=== PATIENT | male | born 1940 | race Caucasian/White ===

== ENCOUNTER 2018-06-07 09:14 | Inpatient (IN) | payer MEDICAID, MEDICARE ==
[~2018-06-07] VITALS: Ht 167.6 cm; Wt 91.6 kg
[~2018-06-07 09:14] MED LIST: AMLO10TA80 PO; ASPI-1159 PO; ATOR-2 PO; CALC-816 PO; CANA100T PO; CARV12.545 PO; CLOP75TA33 PO; FURO40TA5 PO; GABA-531 PO; INSHUMSS SUBCUT; NEOM28OI21 TP; [UNRECOGNIZED DRUG - OTHER]
[2018-06-07] MEDS ORDERED: ONDANSETRON HCL 4MG/2ML INJ IV STA (09:46)
[2018-06-07] MEDS ORDERED: MORPHINE SULFATE 4 MG/ML CPJ (NOT FOR IM USE) IV STA (09:46)
[2018-06-07] MEDS ORDERED: NITROGLYCERIN OINT 1GM/INCH UDPKT TD ONE (10:00)
[2018-06-07] MEDS ORDERED: ASPIRIN 81MG TABLET PO ONE (10:00)
[2018-06-07] MEDS ORDERED: FUROSEMIDE 40MG/4ML VIAL IV ONE (10:00)
[2018-06-07 10:13] LABS: BASOPHILS % 1.9 % (0.0-2.0); HEMATOCRIT. 35.4 % (42.0-52.0); HEMOGLOBIN. 12.2 g/dL (14.0-18.0); MEAN CORPUSCULAR HEMOGLOBIN 29.7 pg (28.0-32.0); MEAN CORPUSCULAR VOLUME 86.2 fL (80.0-94.0); MEAN PLATELET VOLUME 8.8 fl (7.4-10.4); MONOCYTES % 7.9 % (2.0-8.0); NEUTROPHILS % 54.2 % (40.0-76.0); PLATELET 214 x1000/uL (130-400); RED CELL DISTRIBUTION WIDTH 13.7 % (11.6-14.6)
[2018-06-07 10:22] LABS: PARTIAL THROMBOPLASTIN TIME 26.4 sec (23.4-31.0); PROTHROMBIN TIME 10.2 sec (9.1-11.1)
[2018-06-07 10:24] LABS: CHLORIDE 105 mEq/L (98-107)
[2018-06-07 10:36] LABS: CLARITY URINE CLEAR (CLEAR); COLOR URINE YELLOW (YELLOW); KETONES URINE NEGATIVE (NEGATIVE); LEUKOCYTE ESTERASE URINE NEGATIVE (NEGATIVE); NITRITE URINE NEGATIVE (NEGATIVE); OCCULT BLOOD URINE TRACE (NEGATIVE); PROTEIN URINE 4+ (NEGATIVE); SPECIFIC GRAVITY URINE 1.018 (1.005-1.030); UROBILINOGEN URINE 0.2 E.U./dL (0.2-1.0)
[2018-06-07 10:37] LABS: CREATINE KINASE 98 IU/L (39-308)
[2018-06-07 10:40] LABS: CREATINE KINASE MB FRACTION 1.4 ng/mL (0.5-3.6)
[2018-06-07] MEDS ORDERED: ONDANSETRON HCL 4MG/2ML INJ IV PRN (12:30)
[2018-06-07] MEDS: IPRATROPIUM/ALBUTEROL 0.5-3(2.5)MG/3ML NEB INH SCH ×2 (12:30→22:31)
[2018-06-07] MEDS ORDERED: DOCUSATE SODIUM 100MG CAPSULE PO PRN (12:30)
[2018-06-07] MEDS ORDERED: ENOXAPARIN 40MG/0.4ML SYR SUBCUT SCH (12:30)
[2018-06-07] MEDS ORDERED: ACETAMINOPHEN 325MG TABLET PO PRN (12:30)
[2018-06-07] MEDS ORDERED: CLONIDINE 0.1MG TABLET PO PRN (12:30)
[2018-06-07] MEDS: GABAPENTIN 300MG CAPSULE PO SCH ×2 (14:00→21:28)
[2018-06-07 18:18] VITALS: BP 156/74
[2018-06-07] MEDS ORDERED: CARVEDILOL 12.5MG TABLET PO SCH (18:30)
[2018-06-07] MEDS ORDERED: FUROSEMIDE 40MG/4ML VIAL IV SCH ×2 (18:45→20:00)
[2018-06-07 20:00] VITALS: BP_SYST 128; BP_SYST 138; BP_SYST 145; BP_SYST 147; BP_DIAS 40; BP_DIAS 51; BP_DIAS 62; BP_DIAS 66
[2018-06-07 21:00] VITALS: BP 128/40
[2018-06-07] MEDS: CARVEDILOL 12.5MG TABLET PO SCH (21:28)
[2018-06-08] VITALS (7 sets, daily range): BP systolic 134–152; BP diastolic 61–72
[2018-06-08] MEDS: IPRATROPIUM/ALBUTEROL 0.5-3(2.5)MG/3ML NEB INH SCH ×4 (02:17→21:30)
[2018-06-08] MEDS: GABAPENTIN 300MG CAPSULE PO SCH ×3 (05:58→21:46)
[2018-06-08 07:05] LABS: BASOPHILS % 1.4 % (0.0-2.0); EOSINOPHILS % 8.5 % (0.0-5.0); HEMATOCRIT. 32.7 % (42.0-52.0); HEMOGLOBIN. 11.3 g/dL (14.0-18.0); LYMPHOCYTES % 31.4 % (20.0-50.0); MEAN CORPUSCULAR HEMOGLOBIN 29.6 pg (28.0-32.0); MEAN CORPUSCULAR VOLUME 85.8 fL (80.0-94.0); MEAN PLATELET VOLUME 8.9 fl (7.4-10.4); NEUTROPHILS % 49.7 % (40.0-76.0); PLATELET 189 x1000/uL (130-400); RED BLOOD CELL COUNT 3.81 mill/uL (4.7-6.1); RED CELL DISTRIBUTION WIDTH 13.7 % (11.6-14.6)
[2018-06-08] MEDS: CARVEDILOL 12.5MG TABLET PO SCH ×2 (07:15→17:35)
[2018-06-08 07:35] LABS: CHLORIDE 104 mEq/L (98-107)
[2018-06-08 07:50] LABS: HDL CHOLESTEROL 42 mg/dL (40-59); LDL CHOLESTEROL 113 mg/dL (5-100)
[2018-06-08] MEDS: CLOPIDOGREL 75MG TABLET PO SCH ×2 (09:00→14:04)
[2018-06-08] MEDS: ASPIRIN 81MG EC TABLET PO SCH ×2 (09:00→14:04)
[2018-06-08] MEDS: AMLODIPINE 10MG TABLET PO SCH ×2 (09:00→14:04)
[2018-06-08] MEDS: CALCIUM CARBONATE/VITAMIN D3 500MG TABLET PO SCH ×2 (09:00→14:04)
[2018-06-08] MEDS: FUROSEMIDE 40MG/4ML VIAL IV SCH ×2 (10:00→14:03)
[2018-06-08] MEDS ORDERED: DEXTROSE 50% WATER 50ML SYRINGE IV PRN (14:45)
[2018-06-08] MEDS: BLOOD SUGAR DIAGNOSTIC STRIP TEST SCH ×2 (16:14→20:35)
[2018-06-08] MEDS: INSULIN LISPRO 100 UNITS/ML SUBCUT SCH ×2 (17:37→20:40)
[2018-06-08] MEDS ORDERED: ATORVASTATIN CALCIUM 40MG TABLET PO SCH (21:00)
[2018-06-09] VITALS: BP 136/59
[2018-06-09] MEDS: IPRATROPIUM/ALBUTEROL 0.5-3(2.5)MG/3ML NEB INH SCH ×3 (03:00→14:59)
[2018-06-09 04:00] VITALS: BP 134/54
[2018-06-09] MEDS: GABAPENTIN 300MG CAPSULE PO SCH ×2 (05:56→13:06)
[2018-06-09] MEDS: BLOOD SUGAR DIAGNOSTIC STRIP TEST SCH ×3 (05:56→16:48)
[2018-06-09 07:15] LABS: BASOPHILS % 1.1 % (0.0-2.0); EOSINOPHILS % 7.3 % (0.0-5.0); HEMATOCRIT. 31.9 % (42.0-52.0); HEMOGLOBIN. 11.2 g/dL (14.0-18.0); LYMPHOCYTES % 35.7 % (20.0-50.0); MEAN CORPUSCULAR VOLUME 85.8 fL (80.0-94.0); MONOCYTES % 9.3 % (2.0-8.0); NEUTROPHILS % 46.6 % (40.0-76.0); PLATELET 198 x1000/uL (130-400); RED BLOOD CELL COUNT 3.71 mill/uL (4.7-6.1); RED CELL DISTRIBUTION WIDTH 13.7 % (11.6-14.6)
[2018-06-09 08:00] VITALS: BP 146/64
[2018-06-09] MEDS ORDERED: REGADENOSON 0.4 MG/5 ML IV ONE ×2 (08:00→09:15)
[2018-06-09] MEDS: FUROSEMIDE 40MG/4ML VIAL IV SCH (08:31)
[2018-06-09] MEDS: CARVEDILOL 12.5MG TABLET PO SCH (08:32)
[2018-06-09] MEDS: AMLODIPINE 10MG TABLET PO SCH (08:32)
[2018-06-09] MEDS: CLOPIDOGREL 75MG TABLET PO SCH (08:32)
[2018-06-09] MEDS: CALCIUM CARBONATE/VITAMIN D3 500MG TABLET PO SCH (08:32)
[2018-06-09] MEDS: ASPIRIN 81MG EC TABLET PO SCH (08:33)
[2018-06-09] MEDS: INSULIN LISPRO 100 UNITS/ML SUBCUT SCH ×2 (08:38→13:07)
[2018-06-09] MEDS ORDERED: INFLUENZA VIRUS VACCINE(AFLURIA) 0.5ML SYR IM ONE (09:00)
[2018-06-09] MEDS ORDERED: PNEUMOCOCCAL 23-VAL P-SAC VAC 0.5 ML IM ONE (09:00)
[2018-06-09 12:00] VITALS: BP 135/63
[2018-06-09 16:00] VITALS: BP 143/63
[2018-06-09 16:58] VITALS: BP 143/63
== END 2018-06-09 17:20 | disposition home or self-care (01) | DRG 205 ==
LOC: ER 10:08 → 5WST 10:21 → EDBEDREQ 10:39 → ENRESERV 16:27
PROVIDERS: ADMIT Internal Medicine Nephrology; ATTEND Internal Medicine Nephrology
PROC: 4A10X4Z Monitoring of Central Nervous Electrical Activity, External Approach (ICD-10-PCS; principal; 2018-06-08)
DX: M94.0 Chondrocostal junction syndrome [Tietze] (principal); I50.33 Acute on chronic diastolic (congestive) heart failure; J96.90 Respiratory failure, unspecified, unspecified whether with hypoxia or hypercapnia; I13.0 Hypertensive heart and chronic kidney disease with heart failure and stage 1 through stage 4 chronic kidney disease, or unspecified chronic kidney disease; E44.0 Moderate protein-calorie malnutrition; N17.9 Acute kidney failure, unspecified; G90.8 Other disorders of autonomic nervous system; D64.9 Anemia, unspecified; E11.22 Type 2 diabetes mellitus with diabetic chronic kidney disease; E11.42 Type 2 diabetes mellitus with diabetic polyneuropathy; E78.00 Pure hypercholesterolemia, unspecified; I25.10 Atherosclerotic heart disease of native coronary artery without angina pectoris; N18.9 Chronic kidney disease, unspecified; I27.20 Pulmonary hypertension, unspecified; Z95.1 Presence of aortocoronary bypass graft; Z82.49 Family history of ischemic heart disease and other diseases of the circulatory system; Z83.3 Family history of diabetes mellitus; Z87.891 Personal history of nicotine dependence; Z79.899 Other long term (current) drug therapy; Z79.02 Long term (current) use of antithrombotics/antiplatelets; Z79.82 Long term (current) use of aspirin; Z68.32 Body mass index [BMI] 32.0-32.9, adult
CPT/HCPCS: 36415; 70544; 70553; 71045; 78452; 78582; 80048; 80061; 82550; 82553; 82962; 83036; 83735; 83880; 84443; 84484; 90686; 90732; 93005; 93017; 93306; 93880; 94640; 96374; 96375; 97162; 97166; 99285; A9500; A9558; G0482; J1815; J1940; J2270; J2405; J2785; J7620

== ENCOUNTER 2018-08-18 14:42 | Inpatient (IN) | payer MEDICARE, MEDICAID ==
[~2018-08-18] VITALS: Ht 170.2 cm; Wt 90.0 kg
[2018-08-18] MEDS ORDERED: NITROGLYCERIN OINT 1GM/INCH UDPKT TD ONE (15:45)
[2018-08-18] MEDS ORDERED: ASPIRIN 81MG TABLET PO ONE (15:45)
[2018-08-18] MEDS ORDERED: FUROSEMIDE 40MG/4ML VIAL IV ONE (15:45)
[2018-08-18 17:08] LABS: BASOPHILS % 1.2 % (0.0-2.0); HEMATOCRIT. 31.7 % (42.0-52.0); HEMOGLOBIN. 10.8 g/dL (14.0-18.0); LYMPHOCYTES % 21.1 % (20.0-50.0); MEAN CORPUSCULAR VOLUME 87.9 fL (80.0-94.0); MEAN PLATELET VOLUME 9.5 fl (7.4-10.4); MONOCYTES % 10.8 % (2.0-8.0); NEUTROPHILS % 63.9 % (40.0-76.0); PLATELET 170 x1000/uL (130-400); RED BLOOD CELL COUNT 3.61 mill/uL (4.7-6.1); RED CELL DISTRIBUTION WIDTH 14.7 % (11.6-14.6)
[2018-08-18 17:10] LABS: CHLORIDE 109 mEq/L (98-107)
[2018-08-18 17:24] LABS: INR 1.1; PARTIAL THROMBOPLASTIN TIME 30.3 sec (23.4-31.0)
[2018-08-18] MEDS ORDERED: ACETAMINOPHEN 325MG TABLET PO PRN (19:00)
[2018-08-18] MEDS ORDERED: DOCUSATE SODIUM 100MG CAPSULE PO PRN (19:00)
[2018-08-18] MEDS ORDERED: ONDANSETRON HCL 4MG/2ML INJ IV PRN (19:00)
[2018-08-18] MEDS ORDERED: IPRATROPIUM/ALBUTEROL 0.5-3(2.5)MG/3ML NEB INH PRN (19:00)
[2018-08-18] MEDS ORDERED: CLONIDINE 0.1MG TABLET PO PRN (19:00)
[2018-08-18] MEDS ORDERED: MAGNESIUM/ALUMINUM HYDROXIDE/SIMETHICONE 30ML UDC PO PRN (19:00)
[2018-08-18 22:00] VITALS: BP 161/77
[2018-08-18] MEDS ORDERED: CARVEDILOL 3.125 MG TABLET PO ONE (22:30)
[2018-08-18] MEDS: ATORVASTATIN CALCIUM 40MG TABLET PO SCH (22:41)
[2018-08-18] MEDS: GABAPENTIN 300MG CAPSULE PO SCH (22:41)
[2018-08-18] MEDS ORDERED: DEXTROSE 50% WATER 50ML SYRINGE IV PRN (22:45)
[2018-08-18 23:08] LABS: CLARITY URINE CLEAR (CLEAR); COLOR URINE YELLOW (YELLOW); KETONES URINE NEGATIVE (NEGATIVE); LEUKOCYTE ESTERASE URINE NEGATIVE (NEGATIVE); NITRITE URINE NEGATIVE (NEGATIVE); OCCULT BLOOD URINE 1+ (NEGATIVE); PH URINE 5.5 (4.5-8.0); PROTEIN URINE 3+ (NEGATIVE); UROBILINOGEN URINE 0.2 E.U./dL (0.2-1.0)
[2018-08-19] VITALS: BP 129/58
[2018-08-19 04:00] VITALS: BP 154/70
[2018-08-19] MEDS: BLOOD SUGAR DIAGNOSTIC STRIP TEST SCH ×4 (06:31→20:08)
[2018-08-19] MEDS: INSULIN LISPRO 100 UNITS/ML SUBCUT SCH ×4 (06:39→20:18)
[2018-08-19 06:52] LABS: BASOPHILS % 1.2 % (0.0-2.0); EOSINOPHILS % 4.6 % (0.0-5.0); LYMPHOCYTES % 27.1 % (20.0-50.0); MEAN CORPUSCULAR HEMOGLOBIN 29.4 pg (28.0-32.0); MEAN CORPUSCULAR VOLUME 87.9 fL (80.0-94.0); MEAN PLATELET VOLUME 9.7 fl (7.4-10.4); MONOCYTES % 12.4 % (2.0-8.0); NEUTROPHILS % 54.7 % (40.0-76.0); PLATELET 169 x1000/uL (130-400); RED BLOOD CELL COUNT 3.41 mill/uL (4.7-6.1); RED CELL DISTRIBUTION WIDTH 14.4 % (11.6-14.6)
[2018-08-19 07:11] LABS: CHLORIDE 111 mEq/L (98-107)
[2018-08-19 08:00] VITALS: BP 145/71
[2018-08-19] MEDS: FUROSEMIDE 40MG/4ML VIAL IVP SCH ×2 (09:05→16:36)
[2018-08-19] MEDS: ENOXAPARIN 30MG/0.3ML SYR SUBCUT SCH ×2 (09:05→20:14)
[2018-08-19] MEDS: CLOPIDOGREL 75MG TABLET PO SCH (09:06)
[2018-08-19] MEDS: ASPIRIN 81MG TABLET PO SCH (09:06)
[2018-08-19] MEDS: AMLODIPINE 10MG TABLET PO SCH (09:06)
[2018-08-19] MEDS ORDERED: TRAMADOL 50MG TABLET PO PRN (09:15)
[2018-08-19 11:53] VITALS: BP 145/63
[2018-08-19 15:58] VITALS: BP 115/64
[2018-08-19 17:44] LABS: HEPATITIS B SURFACE ANTIGEN NEGATIVE
[2018-08-19 18:14] LABS: HEPATITIS A AB IGM NEGATIVE (NEGATIVE)
[2018-08-19 20:00] VITALS: BP_SYST 146; BP_SYST 172; BP_DIAS 53; BP_DIAS 59
[2018-08-19] MEDS: GABAPENTIN 300MG CAPSULE PO SCH (20:14)
[2018-08-19] MEDS: ATORVASTATIN CALCIUM 40MG TABLET PO SCH (20:14)
[2018-08-20] VITALS: BP 153/61
[2018-08-20 04:00] VITALS: BP 128/62
[2018-08-20] MEDS: BLOOD SUGAR DIAGNOSTIC STRIP TEST SCH ×4 (06:18→20:33)
[2018-08-20] MEDS: PANTOPRAZOLE 40MG DR TABLET PO SCH (06:19)
[2018-08-20] MEDS: INSULIN LISPRO 100 UNITS/ML SUBCUT SCH ×4 (06:20→21:58)
[2018-08-20 07:25] LABS: BASOPHILS % 1.2 % (0.0-2.0); EOSINOPHILS % 6.7 % (0.0-5.0); HEMATOCRIT. 30.9 % (42.0-52.0); HEMOGLOBIN. 10.6 g/dL (14.0-18.0); LYMPHOCYTES % 30.4 % (20.0-50.0); MEAN CORPUSCULAR HEMOGLOBIN 29.9 pg (28.0-32.0); MEAN CORPUSCULAR VOLUME 86.9 fL (80.0-94.0); MEAN PLATELET VOLUME 9.8 fl (7.4-10.4); MONOCYTES % 11.4 % (2.0-8.0); NEUTROPHILS % 50.3 % (40.0-76.0); PLATELET 186 x1000/uL (130-400); RED BLOOD CELL COUNT 3.56 mill/uL (4.7-6.1); RED CELL DISTRIBUTION WIDTH 14.1 % (11.6-14.6)
[2018-08-20 08:00] VITALS: BP 155/70
[2018-08-20] MEDS: FUROSEMIDE 40MG/4ML VIAL IVP SCH ×2 (10:02→17:05)
[2018-08-20] MEDS: ASPIRIN 81MG TABLET PO SCH (10:03)
[2018-08-20] MEDS: CLOPIDOGREL 75MG TABLET PO SCH (10:03)
[2018-08-20] MEDS: AMLODIPINE 10MG TABLET PO SCH (10:03)
[2018-08-20] MEDS: ENOXAPARIN 30MG/0.3ML SYR SUBCUT SCH ×2 (10:04→21:58)
[2018-08-20 12:07] VITALS: BP 162/69
[2018-08-20 16:00] VITALS: BP 158/71
[2018-08-20 20:00] VITALS: BP 162/66
[2018-08-20] MEDS: GABAPENTIN 300MG CAPSULE PO SCH (21:57)
[2018-08-20] MEDS: ATORVASTATIN CALCIUM 40MG TABLET PO SCH (21:57)
[2018-08-21] VITALS: BP 142/63
[2018-08-21 04:00] VITALS: BP 146/69
[2018-08-21] MEDS: BLOOD SUGAR DIAGNOSTIC STRIP TEST SCH (05:43)
[2018-08-21] MEDS: PANTOPRAZOLE 40MG DR TABLET PO SCH (05:50)
[2018-08-21] MEDS: INSULIN LISPRO 100 UNITS/ML SUBCUT SCH (06:48)
[2018-08-21 07:19] LABS: BASOPHILS % 0.9 % (0.0-2.0); EOSINOPHILS % 4.8 % (0.0-5.0); HEMATOCRIT. 32.4 % (42.0-52.0); HEMOGLOBIN. 11.1 g/dL (14.0-18.0); LYMPHOCYTES % 25.6 % (20.0-50.0); MEAN CORPUSCULAR HEMOGLOBIN 29.8 pg (28.0-32.0); MEAN PLATELET VOLUME 9.7 fl (7.4-10.4); MONOCYTES % 9.1 % (2.0-8.0); NEUTROPHILS % 59.6 % (40.0-76.0); PLATELET 196 x1000/uL (130-400); RED BLOOD CELL COUNT 3.73 mill/uL (4.7-6.1); RED CELL DISTRIBUTION WIDTH 13.9 % (11.6-14.6)
[2018-08-21 08:30] VITALS: BP 128/68
[2018-08-21] MEDS: ENOXAPARIN 30MG/0.3ML SYR SUBCUT SCH (08:57)
[2018-08-21] MEDS: ASPIRIN 81MG TABLET PO SCH (08:57)
[2018-08-21] MEDS: AMLODIPINE 10MG TABLET PO SCH (08:57)
[2018-08-21] MEDS: FUROSEMIDE 40MG/4ML VIAL IVP SCH (08:57)
[2018-08-21] MEDS: CLOPIDOGREL 75MG TABLET PO SCH (08:57)
[2018-08-21 09:05] VITALS: BP 128/68
[2018-08-22 09:06] LABS: COMPLEMENT C3 154 mg/dL (82-167)
[2018-08-23 15:06] LABS: ANTI-NUCLEAR ANTIBODIES DIRECT Negative (Negative)
== END 2018-08-21 11:35 | disposition home or self-care (01) | DRG 313 ==
LOC: ER 14:42 → SUPCPDRO 18:57 → 8WST 20:26 → EDBEDREQTM 20:29 → EDBEDREQ 20:29 → ENRESERV 21:32 → 8WST 23:03
PROVIDERS: ADMIT Internal Medicine Nephrology; ATTEND Internal Medicine Nephrology
DX: R07.89 Other chest pain (principal); N17.0 Acute kidney failure with tubular necrosis; I13.0 Hypertensive heart and chronic kidney disease with heart failure and stage 1 through stage 4 chronic kidney disease, or unspecified chronic kidney disease; E46 Unspecified protein-calorie malnutrition; I50.9 Heart failure, unspecified; N18.9 Chronic kidney disease, unspecified; E11.22 Type 2 diabetes mellitus with diabetic chronic kidney disease; E78.00 Pure hypercholesterolemia, unspecified; E78.5 Hyperlipidemia, unspecified; I25.10 Atherosclerotic heart disease of native coronary artery without angina pectoris; Z79.82 Long term (current) use of aspirin; Z86.73 Personal history of transient ischemic attack (TIA), and cerebral infarction without residual deficits; Z95.1 Presence of aortocoronary bypass graft; Z79.899 Other long term (current) drug therapy; Z79.4 Long term (current) use of insulin; Z68.31 Body mass index [BMI] 31.0-31.9, adult
CPT/HCPCS: 36415; 71045; 76770; 78580; 80048; 80061; 82570; 82962; 83036; 83735; 83880; 84156; 84484; 85379; 86038; 86160; 86592; 86705; 86709; 86803; 87340; 93005; 93970; 96374; 99285; J1650; J1815; J1940

== ENCOUNTER 2018-12-21 12:39 | Inpatient (IN) | payer MEDICARE, MEDICAID ==
[~2018-12-21] VITALS: Ht 167.6 cm; Wt 93.0 kg
[2018-12-21] MEDS ORDERED: ASPIRIN 81MG TABLET PO ONE (14:00)
[2018-12-21 15:00] LABS: BASOPHILS % 1.7 % (0.0-2.0); EOSINOPHILS % 6.4 % (0.0-5.0); HEMATOCRIT. 33.9 % (42.0-52.0); HEMOGLOBIN. 11.2 g/dL (14.0-18.0); MEAN CORPUSCULAR HEMOGLOBIN 28.7 pg (28.0-32.0); MEAN CORPUSCULAR VOLUME 86.7 fL (80.0-94.0); MEAN PLATELET VOLUME 7.7 fl (7.4-10.4); MONOCYTES % 9.3 % (2.0-8.0); NEUTROPHILS % 59.6 % (40.0-76.0); PLATELET 248 x1000/uL (130-400); RED BLOOD CELL COUNT 3.91 mill/uL (4.7-6.1); RED CELL DISTRIBUTION WIDTH 14.9 % (11.6-14.6)
[2018-12-21 15:06] LABS: CHLORIDE 114 mEq/L (98-107)
[2018-12-21] MEDS ORDERED: ENOXAPARIN 100MG/ML SYR SUBCUT ONE (16:30)
[2018-12-21] MEDS ORDERED: ACETAMINOPHEN 325MG TABLET PO PRN (16:45)
[2018-12-21] MEDS ORDERED: ENOXAPARIN 40MG/0.4ML SYR SUBCUT SCH (16:45)
[2018-12-21] MEDS ORDERED: DOCUSATE SODIUM 100MG CAPSULE PO PRN ×2 (16:45→22:30)
[2018-12-21] MEDS ORDERED: ONDANSETRON HCL 4MG/2ML INJ IV PRN ×2 (16:45→22:30)
[2018-12-21] MEDS ORDERED: CLONIDINE 0.1MG TABLET PO PRN (16:45)
[2018-12-21 19:42] LABS: CLARITY URINE CLEAR (CLEAR); COLOR URINE YELLOW (YELLOW); KETONES URINE NEGATIVE (NEGATIVE); LEUKOCYTE ESTERASE URINE NEGATIVE (NEGATIVE); NITRITE URINE NEGATIVE (NEGATIVE); OCCULT BLOOD URINE 1+ (NEGATIVE); PROTEIN URINE 3+ (NEGATIVE); UROBILINOGEN URINE 0.2 E.U./dL (0.2-1.0)
[2018-12-21 20:00] LABS: *AMPHETAMINES SCREEN URINE NEGATIVE (NEGATIVE); *BARBITURATES SCREEN URINE NEGATIVE (NEGATIVE)
[2018-12-21 20:01] LABS: *BENZODIAZEPINES SCREEN URINE NEGATIVE (NEGATIVE); *COCAINE SCREEN URINE NEGATIVE (NEGATIVE); CANNABINOID URINE SCREEN NEGATIVE (NEGATIVE); METHADONE URINE SCREEN NEGATIVE (NEGATIVE); OPIATES URINE SCREEN NEGATIVE (NEGATIVE); PHENCYCLIDINE URINE SCREEN NEGATIVE (NEGATIVE)
[2018-12-21] MEDS ORDERED: IPRATROPIUM/ALBUTEROL 0.5-3(2.5)MG/3ML NEB INH PRN (22:30)
[2018-12-21] MEDS ORDERED: HYDROCODONE/ACETAMINOPHEN 5/325MG TABLET PO PRN (22:30)
[2018-12-21] MEDS ORDERED: LORAZEPAM 2MG/ML CPJ IV PRN (22:30)
[2018-12-21] MEDS ORDERED: CARVEDILOL 12.5MG TABLET GT SCH (23:04)
[2018-12-21] MEDS: ENOXAPARIN 40MG/0.4ML SYR SUBCUT SCH (23:44)
[2018-12-21] MEDS: FUROSEMIDE 40MG/4ML VIAL IVP SCH (23:46)
[2018-12-22 00:52] VITALS: BP 152/66
[2018-12-22] MEDS: IPRATROPIUM/ALBUTEROL 0.5-3(2.5)MG/3ML NEB INH SCH ×4 (01:45→21:22)
[2018-12-22 04:00] VITALS: BP 147/64
[2018-12-22 06:48] LABS: BASOPHILS % 1.4 % (0.0-2.0); EOSINOPHILS % 6.6 % (0.0-5.0); HEMATOCRIT. 30.3 % (42.0-52.0); HEMOGLOBIN. 10.3 g/dL (14.0-18.0); LYMPHOCYTES % 25.1 % (20.0-50.0); MEAN CORPUSCULAR HEMOGLOBIN 29.3 pg (28.0-32.0); MEAN CORPUSCULAR VOLUME 86.2 fL (80.0-94.0); MEAN PLATELET VOLUME 8.5 fl (7.4-10.4); MONOCYTES % 7.3 % (2.0-8.0); NEUTROPHILS % 59.6 % (40.0-76.0); PLATELET 244 x1000/uL (130-400); RED BLOOD CELL COUNT 3.51 mill/uL (4.7-6.1); RED CELL DISTRIBUTION WIDTH 14.8 % (11.6-14.6)
[2018-12-22 07:37] LABS: CHLORIDE 114 mEq/L (98-107)
[2018-12-22 07:43] LABS: PHOSPHORUS 3.7 mg/dL (2.5-4.9)
[2018-12-22 07:44] LABS: LDL CHOLESTEROL 83 mg/dL (5-100)
[2018-12-22 07:45] LABS: HDL CHOLESTEROL 49 mg/dL (40-59)
[2018-12-22 08:00] VITALS: BP 166/98
[2018-12-22] MEDS ORDERED: DEXTROSE 50% WATER 50ML SYRINGE IV PRN (08:30)
[2018-12-22] MEDS: FUROSEMIDE 40MG/4ML VIAL IVP SCH (08:41)
[2018-12-22] MEDS: FOLIC ACID 1MG TABLET PO SCH (08:41)
[2018-12-22] MEDS: AMLODIPINE 10MG TABLET PO SCH (08:41)
[2018-12-22] MEDS: ASPIRIN 81MG EC TABLET PO SCH (08:41)
[2018-12-22] MEDS: CLOPIDOGREL 75MG TABLET PO SCH (08:41)
[2018-12-22] MEDS ORDERED: ASPIRIN 81MG EC TABLET PO SCH (09:00)
[2018-12-22] MEDS ORDERED: CARVEDILOL 12.5MG TABLET GT SCH (10:20)
[2018-12-22] MEDS: BLOOD SUGAR DIAGNOSTIC STRIP TEST SCH ×3 (11:42→20:40)
[2018-12-22] MEDS: INSULIN LISPRO 100 UNITS/ML SUBCUT SCH ×3 (11:52→20:54)
[2018-12-22 12:00] VITALS: BP 140/65
[2018-12-22 16:00] VITALS: BP 133/61
[2018-12-22 20:00] VITALS: BP 109/64
[2018-12-22] MEDS: ATORVASTATIN CALCIUM 40MG TABLET PO SCH (20:39)
[2018-12-22] MEDS: ENOXAPARIN 40MG/0.4ML SYR SUBCUT SCH (20:40)
[2018-12-22] MEDS: CARVEDILOL 12.5MG TABLET PO SCH (20:54)
[2018-12-23] VITALS: BP 123/56
[2018-12-23] MEDS: IPRATROPIUM/ALBUTEROL 0.5-3(2.5)MG/3ML NEB INH SCH ×5 (01:45→21:50)
[2018-12-23 04:00] VITALS: BP 113/59
[2018-12-23 06:25] LABS: BASOPHILS % 1.4 % (0.0-2.0); EOSINOPHILS % 6.3 % (0.0-5.0); HEMOGLOBIN. 10.2 g/dL (14.0-18.0); MEAN CORPUSCULAR HEMOGLOBIN 29.3 pg (28.0-32.0); MEAN PLATELET VOLUME 8.6 fl (7.4-10.4); MONOCYTES % 7.2 % (2.0-8.0); NEUTROPHILS % 55.1 % (40.0-76.0); PLATELET 245 x1000/uL (130-400); RED BLOOD CELL COUNT 3.49 mill/uL (4.7-6.1); RED CELL DISTRIBUTION WIDTH 14.9 % (11.6-14.6)
[2018-12-23] MEDS: BLOOD SUGAR DIAGNOSTIC STRIP TEST SCH ×4 (06:45→21:00)
[2018-12-23] MEDS: INSULIN LISPRO 100 UNITS/ML SUBCUT SCH ×4 (06:47→21:00)
[2018-12-23 08:00] VITALS: BP 154/67
[2018-12-23] MEDS: AMLODIPINE 10MG TABLET PO SCH (09:25)
[2018-12-23] MEDS: CLOPIDOGREL 75MG TABLET PO SCH (09:25)
[2018-12-23] MEDS: FOLIC ACID 1MG TABLET PO SCH (09:25)
[2018-12-23] MEDS: ASPIRIN 81MG EC TABLET PO SCH (09:26)
[2018-12-23] MEDS: CARVEDILOL 12.5MG TABLET PO SCH ×2 (09:26→20:28)
[2018-12-23] MEDS: FUROSEMIDE 40MG/4ML VIAL IVP SCH (09:26)
[2018-12-23 11:33] LABS: PHOSPHORUS 4.3 mg/dL (2.5-4.9)
[2018-12-23 12:00] VITALS: BP_SYST 147; BP_SYST 150; BP_SYST 167; BP_DIAS 63; BP_DIAS 66; BP_DIAS 67
[2018-12-23 16:00] VITALS: BP 122/61
[2018-12-23 20:00] VITALS: BP_SYST 126; BP_SYST 128; BP_SYST 134; BP_DIAS 54; BP_DIAS 56; BP_DIAS 60
[2018-12-23] MEDS: ATORVASTATIN CALCIUM 40MG TABLET PO SCH (20:28)
[2018-12-23] MEDS: ENOXAPARIN 40MG/0.4ML SYR SUBCUT SCH (20:28)
[2018-12-24] VITALS: BP 133/56
[2018-12-24] MEDS: IPRATROPIUM/ALBUTEROL 0.5-3(2.5)MG/3ML NEB INH SCH ×4 (03:24→20:14)
[2018-12-24 04:30] VITALS: BP 142/60
[2018-12-24 05:45] LABS: BASOPHILS % 1.5 % (0.0-2.0); EOSINOPHILS % 6.9 % (0.0-5.0); HEMATOCRIT. 29.6 % (42.0-52.0); HEMOGLOBIN. 9.9 g/dL (14.0-18.0); LYMPHOCYTES % 26.7 % (20.0-50.0); MEAN CORPUSCULAR HEMOGLOBIN 28.9 pg (28.0-32.0); MEAN CORPUSCULAR VOLUME 86.1 fL (80.0-94.0); MEAN PLATELET VOLUME 8.5 fl (7.4-10.4); MONOCYTES % 8.8 % (2.0-8.0); NEUTROPHILS % 56.1 % (40.0-76.0); PLATELET 243 x1000/uL (130-400); RED BLOOD CELL COUNT 3.44 mill/uL (4.7-6.1); RED CELL DISTRIBUTION WIDTH 14.5 % (11.6-14.6)
[2018-12-24] MEDS: INSULIN LISPRO 100 UNITS/ML SUBCUT SCH ×4 (06:29→20:30)
[2018-12-24] MEDS: BLOOD SUGAR DIAGNOSTIC STRIP TEST SCH ×4 (06:29→20:30)
[2018-12-24 08:00] VITALS: BP_SYST 138; BP_SYST 150; BP_SYST 154; BP_DIAS 60; BP_DIAS 62; BP_DIAS 67
[2018-12-24] MEDS: ASPIRIN 81MG EC TABLET PO SCH (08:27)
[2018-12-24] MEDS: CLOPIDOGREL 75MG TABLET PO SCH (08:27)
[2018-12-24] MEDS: FUROSEMIDE 40MG/4ML VIAL IVP SCH ×2 (08:27→17:37)
[2018-12-24] MEDS: FOLIC ACID 1MG TABLET PO SCH (08:27)
[2018-12-24] MEDS: CARVEDILOL 12.5MG TABLET PO SCH ×2 (08:28→20:27)
[2018-12-24] MEDS: AMLODIPINE 10MG TABLET PO SCH (08:28)
[2018-12-24 11:47] VITALS: BP 146/68
[2018-12-24 16:00] VITALS: BP 150/64
[2018-12-24 20:00] VITALS: BP_SYST 132; BP_SYST 136; BP_DIAS 72; BP_DIAS 74
[2018-12-24] MEDS: ENOXAPARIN 40MG/0.4ML SYR SUBCUT SCH (20:27)
[2018-12-24] MEDS: ATORVASTATIN CALCIUM 40MG TABLET PO SCH (20:27)
[2018-12-25] VITALS: BP 132/63
[2018-12-25] MEDS: IPRATROPIUM/ALBUTEROL 0.5-3(2.5)MG/3ML NEB INH SCH ×2 (01:20→08:25)
[2018-12-25 04:00] VITALS: BP 143/62
[2018-12-25] MEDS: BLOOD SUGAR DIAGNOSTIC STRIP TEST SCH ×2 (05:51→11:22)
[2018-12-25] MEDS: FUROSEMIDE 40MG/4ML VIAL IVP SCH (06:19)
[2018-12-25] MEDS: INSULIN LISPRO 100 UNITS/ML SUBCUT SCH ×2 (06:20→12:35)
[2018-12-25 08:00] VITALS: BP_SYST 141; BP_SYST 150; BP_DIAS 61; BP_DIAS 63; BP_DIAS 66
[2018-12-25] MEDS: CLOPIDOGREL 75MG TABLET PO SCH (08:21)
[2018-12-25] MEDS: FOLIC ACID 1MG TABLET PO SCH (08:21)
[2018-12-25] MEDS: CARVEDILOL 12.5MG TABLET PO SCH (08:21)
[2018-12-25] MEDS: AMLODIPINE 10MG TABLET PO SCH (08:21)
[2018-12-25] MEDS: ASPIRIN 81MG EC TABLET PO SCH (08:21)
[2018-12-25 12:00] VITALS: BP 140/60
[2018-12-25 13:45] VITALS: BP 140/60
== END 2018-12-25 14:45 | disposition home or self-care (01) | DRG 291 ==
LOC: ER 12:39 → EDBEDREQ 16:22 → EDBEDREQTM 16:22 → EDBEDREQ 16:29 → 5WST 16:51 → EDBEDREQTM 16:52 → EDBEDREQ 16:52 → ENRESERV 20:42
PROVIDERS: ADMIT Internal Medicine Nephrology; ATTEND Internal Medicine Nephrology
DX: I13.0 Hypertensive heart and chronic kidney disease with heart failure and stage 1 through stage 4 chronic kidney disease, or unspecified chronic kidney disease (principal); E43 Unspecified severe protein-calorie malnutrition; I50.43 Acute on chronic combined systolic (congestive) and diastolic (congestive) heart failure; N18.4 Chronic kidney disease, stage 4 (severe); N17.9 Acute kidney failure, unspecified; I25.110 Atherosclerotic heart disease of native coronary artery with unstable angina pectoris; I42.9 Cardiomyopathy, unspecified; E78.5 Hyperlipidemia, unspecified; E11.22 Type 2 diabetes mellitus with diabetic chronic kidney disease; D64.9 Anemia, unspecified; E66.9 Obesity, unspecified; E78.00 Pure hypercholesterolemia, unspecified; E87.8 Other disorders of electrolyte and fluid balance, not elsewhere classified; Z82.49 Family history of ischemic heart disease and other diseases of the circulatory system; Z83.3 Family history of diabetes mellitus; Z86.73 Personal history of transient ischemic attack (TIA), and cerebral infarction without residual deficits; Z95.1 Presence of aortocoronary bypass graft; Z79.84 Long term (current) use of oral hypoglycemic drugs; Z68.33 Body mass index [BMI] 33.0-33.9, adult; Z79.899 Other long term (current) drug therapy
CPT/HCPCS: 36415; 71045; 76770; 78582; 80048; 80061; 80305; 82570; 82728; 82962; 83036; 83540; 83550; 83735; 83970; 84100; 84156; 84443; 84484; 85379; 93005; 93306; 93970; 94640; 97162; 99291; A9558; J1650; J1815; J1940; J7620

== ENCOUNTER 2019-01-01 00:08 | Inpatient (IN) | payer MEDICARE, MEDICAID ==
[~2019-01-01] VITALS: Ht 175.3 cm; Wt 86.2 kg
[2019-01-01] MEDS ORDERED: ASPIRIN 81MG TABLET PO ONE (00:30)
[2019-01-01] MEDS ORDERED: FUROSEMIDE 40MG/4ML VIAL IVP ONE (00:45)
[2019-01-01 00:58] LABS: BASOPHILS % 1.1 % (0.0-2.0); CHLORIDE 109 mEq/L (98-107); EOSINOPHILS % 1.3 % (0.0-5.0); HEMATOCRIT. 30.9 % (42.0-52.0); HEMOGLOBIN. 10.4 g/dL (14.0-18.0); LYMPHOCYTES % 9.1 % (20.0-50.0); MEAN CORPUSCULAR HEMOGLOBIN 29.3 pg (28.0-32.0); MEAN CORPUSCULAR VOLUME 86.9 fL (80.0-94.0); MEAN PLATELET VOLUME 9.2 fl (7.4-10.4); MONOCYTES % 7.8 % (2.0-8.0); NEUTROPHILS % 80.7 % (40.0-76.0); PLATELET 238 x1000/uL (130-400); RED BLOOD CELL COUNT 3.56 mill/uL (4.7-6.1); RED CELL DISTRIBUTION WIDTH 15.3 % (11.6-14.6)
[2019-01-01] MEDS ORDERED: VISCOUS LIDOCAINE 2% 15 ML UDC PO ONE (01:00)
[2019-01-01] MEDS ORDERED: MAGNESIUM/ALUMINUM HYDROXIDE/SIMETHICONE 30ML UDC PO ONE (01:00)
[2019-01-01] MEDS ORDERED: INSULIN LISPRO 100 UNITS/ML SUBCUT NR (03:00)
[2019-01-01 05:00] VITALS: BP 128/57
[2019-01-01 05:03] VITALS: BP 128/57
[2019-01-01] MEDS ORDERED: OXYM-46 NS (05:41)
[2019-01-01] MEDS ORDERED: DEXTROSE 50% WATER 50ML SYRINGE IV PRN (06:30)
[2019-01-01] MEDS ORDERED: MORPHINE SULFATE 4 MG/ML CPJ (NOT FOR IM USE) IV PRN (06:30)
[2019-01-01 08:00] VITALS: BP 140/60
[2019-01-01] MEDS: ACETAMINOPHEN 325MG TABLET PO PRN ×2 (08:08→20:31)
[2019-01-01] MEDS: INSULIN LISPRO 100 UNITS/ML SUBCUT SCH ×4 (08:10→20:44)
[2019-01-01 08:18] LABS: INR 1.1; PROTHROMBIN TIME 11.2 sec (9.6-11.0)
[2019-01-01] MEDS: FUROSEMIDE 100MG/10ML VIAL IVP SCH ×2 (08:23→18:28)
[2019-01-01] MEDS: BLOOD SUGAR DIAGNOSTIC STRIP TEST SCH ×4 (08:31→20:40)
[2019-01-01 10:32] LABS: BASOPHILS % 1.1 % (0.0-2.0); EOSINOPHILS % 2.1 % (0.0-5.0); HEMATOCRIT. 27.7 % (42.0-52.0); HEMOGLOBIN. 9.3 g/dL (14.0-18.0); LYMPHOCYTES % 15.6 % (20.0-50.0); MEAN CORPUSCULAR HEMOGLOBIN 29.4 pg (28.0-32.0); MEAN CORPUSCULAR VOLUME 87.7 fL (80.0-94.0); MEAN PLATELET VOLUME 9.7 fl (7.4-10.4); MONOCYTES % 10.9 % (2.0-8.0); NEUTROPHILS % 70.3 % (40.0-76.0); PLATELET 206 x1000/uL (130-400); RED BLOOD CELL COUNT 3.16 mill/uL (4.7-6.1); RED CELL DISTRIBUTION WIDTH 15.1 % (11.6-14.6)
[2019-01-01 12:00] VITALS: BP 135/52
[2019-01-01] MEDS ORDERED: CLONIDINE 0.2MG TABLET PO PRN (12:15)
[2019-01-01] MEDS ORDERED: CLONIDINE 0.1MG TABLET PO PRN (12:15)
[2019-01-01] MEDS: ASPIRIN 81MG TABLET PO SCH (12:39)
[2019-01-01] MEDS: CLOPIDOGREL 75MG TABLET PO SCH (12:39)
[2019-01-01] MEDS ORDERED: SODIUM POLYSTYRENE SULFONATE 15 G/60 ML BOT PO NR (13:30)
[2019-01-01 16:00] VITALS: BP 128/79
[2019-01-01] MEDS: AZITHROMYCIN 500 MG TABLET PO SCH (18:28)
[2019-01-01 20:00] VITALS: BP 140/62
[2019-01-01] MEDS: ATORVASTATIN CALCIUM 40MG TABLET PO SCH (20:25)
[2019-01-02] VITALS: BP 124/76
[2019-01-02 04:00] VITALS: BP 108/57
[2019-01-02 06:05] LABS: BASOPHILS % 1.2 % (0.0-2.0); EOSINOPHILS % 4.8 % (0.0-5.0); HEMATOCRIT. 27.2 % (42.0-52.0); HEMOGLOBIN. 9.2 g/dL (14.0-18.0); LYMPHOCYTES % 16.1 % (20.0-50.0); MEAN CORPUSCULAR HEMOGLOBIN 29.4 pg (28.0-32.0); MEAN CORPUSCULAR VOLUME 86.8 fL (80.0-94.0); MEAN PLATELET VOLUME 9.9 fl (7.4-10.4); MONOCYTES % 11.5 % (2.0-8.0); NEUTROPHILS % 66.4 % (40.0-76.0); PLATELET 207 x1000/uL (130-400); RED BLOOD CELL COUNT 3.13 mill/uL (4.7-6.1); RED CELL DISTRIBUTION WIDTH 14.8 % (11.6-14.6)
[2019-01-02 06:18] LABS: CHLORIDE 108 mEq/L (98-107)
[2019-01-02 06:26] LABS: LDL CHOLESTEROL 39 mg/dL (5-100)
[2019-01-02 06:27] LABS: CREATINE KINASE 52 IU/L (39-308)
[2019-01-02] MEDS: BLOOD SUGAR DIAGNOSTIC STRIP TEST SCH ×4 (06:27→20:43)
[2019-01-02 06:29] LABS: HDL CHOLESTEROL 56 mg/dL (40-59)
[2019-01-02 06:32] LABS: CREATINE KINASE MB FRACTION < 1.0 ng/mL (0.5-3.6)
[2019-01-02 08:00] VITALS: BP 125/69
[2019-01-02] MEDS: INSULIN LISPRO 100 UNITS/ML SUBCUT SCH ×4 (08:10→21:08)
[2019-01-02] MEDS: CLOPIDOGREL 75MG TABLET PO SCH (09:38)
[2019-01-02] MEDS: FUROSEMIDE 100MG/10ML VIAL IVP SCH ×2 (09:38→18:21)
[2019-01-02] MEDS: AZITHROMYCIN 500 MG TABLET PO SCH (09:38)
[2019-01-02] MEDS: ASPIRIN 81MG TABLET PO SCH (09:38)
[2019-01-02] MEDS: ENOXAPARIN 30MG/0.3ML SYR SUBCUT SCH (09:39)
[2019-01-02 12:00] VITALS: BP 118/74
[2019-01-02 16:00] VITALS: BP 137/62
[2019-01-02 20:00] VITALS: BP 155/65
[2019-01-02] MEDS: ATORVASTATIN CALCIUM 40MG TABLET PO SCH (21:07)
[2019-01-03] VITALS: BP 126/61
[2019-01-03 04:00] VITALS: BP 150/67
[2019-01-03] MEDS: BLOOD SUGAR DIAGNOSTIC STRIP TEST SCH ×4 (04:53→21:15)
[2019-01-03 06:30] LABS: CHLORIDE 106 mEq/L (98-107)
[2019-01-03 06:41] LABS: BASOPHILS % 1.3 % (0.0-2.0); EOSINOPHILS % 3.2 % (0.0-5.0); HEMATOCRIT. 28.7 % (42.0-52.0); HEMOGLOBIN. 9.7 g/dL (14.0-18.0); LYMPHOCYTES % 18.1 % (20.0-50.0); MEAN CORPUSCULAR HEMOGLOBIN 29.1 pg (28.0-32.0); MEAN CORPUSCULAR VOLUME 86.3 fL (80.0-94.0); MEAN PLATELET VOLUME 9.8 fl (7.4-10.4); MONOCYTES % 9.7 % (2.0-8.0); NEUTROPHILS % 67.7 % (40.0-76.0); PLATELET 227 x1000/uL (130-400); RED BLOOD CELL COUNT 3.32 mill/uL (4.7-6.1); RED CELL DISTRIBUTION WIDTH 14.7 % (11.6-14.6)
[2019-01-03 08:00] VITALS: BP 129/69
[2019-01-03] MEDS: AZITHROMYCIN 500 MG TABLET PO SCH (08:53)
[2019-01-03] MEDS: CLOPIDOGREL 75MG TABLET PO SCH (08:53)
[2019-01-03] MEDS: ENOXAPARIN 30MG/0.3ML SYR SUBCUT SCH (08:54)
[2019-01-03] MEDS: ASPIRIN 81MG TABLET PO SCH (08:54)
[2019-01-03] MEDS: INSULIN LISPRO 100 UNITS/ML SUBCUT SCH ×4 (08:56→21:51)
[2019-01-03] MEDS: FUROSEMIDE 100MG/10ML VIAL IVP SCH (11:03)
[2019-01-03 12:00] VITALS: BP 141/75
[2019-01-03 16:00] VITALS: BP 146/69
[2019-01-03 20:00] VITALS: BP 142/62
[2019-01-03] MEDS: ATORVASTATIN CALCIUM 40MG TABLET PO SCH (21:14)
[2019-01-03 23:38] LABS: CREATININE URINE (RAW) 49.8 mg/dl
[2019-01-04] VITALS: BP 130/61
[2019-01-04 04:00] VITALS: BP 148/63
[2019-01-04] MEDS: BLOOD SUGAR DIAGNOSTIC STRIP TEST SCH (05:38)
[2019-01-04 08:00] VITALS: BP 147/63
[2019-01-04] MEDS: ASPIRIN 81MG TABLET PO SCH (09:59)
[2019-01-04] MEDS: AZITHROMYCIN 500 MG TABLET PO SCH (09:59)
[2019-01-04] MEDS: CLOPIDOGREL 75MG TABLET PO SCH (09:59)
[2019-01-04] MEDS: ENOXAPARIN 30MG/0.3ML SYR SUBCUT SCH (09:59)
[2019-01-04] MEDS: INSULIN LISPRO 100 UNITS/ML SUBCUT SCH ×2 (10:04→13:24)
[2019-01-04 12:00] VITALS: BP 138/74
[2019-01-04 14:00] VITALS: BP 138/74
== END 2019-01-04 15:05 | disposition home or self-care (01) | DRG 871 ==
LOC: ER 00:08 → EDBEDREQTM 03:13 → EDBEDREQ 03:13 → ENRESERV 03:25 → 7WST 05:18
PROVIDERS: ADMIT Internal Medicine Nephrology; ATTEND Internal Medicine Nephrology
PROC: 5A09357 Assistance with Respiratory Ventilation, Less than 24 Consecutive Hours, Continuous Positive Airway Pressure (ICD-10-PCS; principal; 2019-01-01)
DX: A41.9 Sepsis, unspecified organism (principal); I50.43 Acute on chronic combined systolic (congestive) and diastolic (congestive) heart failure; J18.1 Lobar pneumonia, unspecified organism; N17.0 Acute kidney failure with tubular necrosis; E43 Unspecified severe protein-calorie malnutrition; I13.0 Hypertensive heart and chronic kidney disease with heart failure and stage 1 through stage 4 chronic kidney disease, or unspecified chronic kidney disease; D63.8 Anemia in other chronic diseases classified elsewhere; E11.22 Type 2 diabetes mellitus with diabetic chronic kidney disease; E11.65 Type 2 diabetes mellitus with hyperglycemia; E78.00 Pure hypercholesterolemia, unspecified; E78.5 Hyperlipidemia, unspecified; E87.5 Hyperkalemia; I25.10 Atherosclerotic heart disease of native coronary artery without angina pectoris; I25.5 Ischemic cardiomyopathy; N18.9 Chronic kidney disease, unspecified; Z95.1 Presence of aortocoronary bypass graft; Z79.82 Long term (current) use of aspirin; Z79.4 Long term (current) use of insulin; Z79.899 Other long term (current) drug therapy; Z68.28 Body mass index [BMI] 28.0-28.9, adult
CPT/HCPCS: 36415; 71045; 80048; 80061; 82550; 82553; 82575; 82962; 83735; 83880; 84484; 85379; 87070; 93005; 93970; 96365; 96375; 99285; J1650; J1815; J1940

== ENCOUNTER 2019-01-12 10:11 | Inpatient (IN) | payer MEDICARE, MEDICAID ==
[~2019-01-12] VITALS: Ht 180.3 cm; Wt 92.0 kg
[~2019-01-12 10:11] MED LIST changes: -ASPI-1159 PO; +ASPI-1393 PO; +CALC-38 PO; -CALC-816 PO; -CANA100T PO; +OXYM-46 NS; -[UNRECOGNIZED DRUG - OTHER]
[2019-01-12 11:15] LABS: EOSINOPHILS % 3.8 % (0.0-5.0); HEMATOCRIT. 27.8 % (42.0-52.0); HEMOGLOBIN. 9.4 g/dL (14.0-18.0); LYMPHOCYTES % 22.2 % (20.0-50.0); MEAN CORPUSCULAR HEMOGLOBIN 29.5 pg (28.0-32.0); MEAN CORPUSCULAR VOLUME 86.9 fL (80.0-94.0); MEAN PLATELET VOLUME 9.3 fl (7.4-10.4); MONOCYTES % 8.9 % (2.0-8.0); NEUTROPHILS % 64.1 % (40.0-76.0); PLATELET 232 x1000/uL (130-400)
[2019-01-12] MEDS ORDERED: NITROGLYCERIN 0.4MG TABLET SL SL PRN (11:15)
[2019-01-12] MEDS ORDERED: ASPIRIN 325MG EC TABLET PO ONE (11:15)
[2019-01-12 11:19] LABS: CHLORIDE 110 mEq/L (98-107)
[2019-01-12 11:39] LABS: INR 1.1; PARTIAL THROMBOPLASTIN TIME 30.6 sec (23.4-31.0); PROTHROMBIN TIME 11.7 sec (9.6-11.0)
[2019-01-12 18:48] VITALS: BP 139/60
[2019-01-12] MEDS ORDERED: HYDROCODONE/ACETAMINOPHEN 5/325MG TABLET PO PRN (19:30)
[2019-01-12 20:19] VITALS: BP 131/62
[2019-01-12] MEDS: NITROGLYCERIN OINT 1GM/INCH UDPKT TD SCH (21:44)
[2019-01-12] MEDS: FUROSEMIDE 40MG/4ML VIAL IV SCH (21:44)
[2019-01-12] MEDS: BLOOD SUGAR DIAGNOSTIC STRIP TEST SCH (21:45)
[2019-01-12] MEDS: METHYLPREDNISOLONE SOD SUCC 125 MG/2 ML VIAL IV SCH (21:45)
[2019-01-12] MEDS: ENOXAPARIN 40MG/0.4ML SYR SUBCUT SCH (21:45)
[2019-01-12 22:18] VITALS: BP 131/62
[2019-01-12 23:06] LABS: CREATINE KINASE 192 IU/L (39-308)
[2019-01-12 23:07] LABS: CREATINE KINASE MB FRACTION 3.6 ng/mL (0.5-3.6)
[2019-01-13] VITALS: BP 109/64
[2019-01-13 04:00] VITALS: BP 127/58
[2019-01-13] MEDS: METHYLPREDNISOLONE SOD SUCC 125 MG/2 ML VIAL IV SCH ×3 (06:35→21:02)
[2019-01-13] MEDS: BLOOD SUGAR DIAGNOSTIC STRIP TEST SCH ×4 (07:20→20:20)
[2019-01-13 07:56] LABS: CREATINE KINASE 168 IU/L (39-308)
[2019-01-13 08:00] VITALS: BP 134/58
[2019-01-13] MEDS: THIAMINE HCL 100MG TABLET PO SCH (09:28)
[2019-01-13] MEDS: FUROSEMIDE 40MG/4ML VIAL IV SCH ×2 (09:28→18:36)
[2019-01-13] MEDS: ASPIRIN 81MG EC TABLET PO SCH (09:29)
[2019-01-13] MEDS: AMLODIPINE 10MG TABLET PO SCH (09:29)
[2019-01-13] MEDS: NITROGLYCERIN OINT 1GM/INCH UDPKT TD SCH ×3 (09:29→18:36)
[2019-01-13] MEDS: FOLIC ACID 1MG TABLET PO SCH (09:29)
[2019-01-13] MEDS ORDERED: DEXTROSE 50% WATER 50ML SYRINGE IV PRN ×2 (09:45)
[2019-01-13 12:00] VITALS: BP 140/59
[2019-01-13] MEDS ORDERED: BLOOD SUGAR DIAGNOSTIC STRIP TEST SCH (12:20)
[2019-01-13] MEDS: INSULIN LISPRO 100 UNITS/ML SUBCUT SCH ×3 (14:06→20:39)
[2019-01-13 16:00] VITALS: BP 141/63
[2019-01-13 16:04] LABS: HEPATITIS B SURFACE AB 3.9 mIU/mL
[2019-01-13 16:14] LABS: HEPATITIS B SURFACE ANTIGEN NEGATIVE
[2019-01-13 17:23] LABS: CHLORIDE 108 mEq/L (98-107)
[2019-01-13 17:27] LABS: BASOPHILS % 1.3 % (0.0-2.0); HEMATOCRIT. 27.8 % (42.0-52.0); HEMOGLOBIN. 9.1 g/dL (14.0-18.0); LYMPHOCYTES % 11.9 % (20.0-50.0); MEAN CORPUSCULAR VOLUME 88.2 fL (80.0-94.0); MEAN PLATELET VOLUME 10.1 fl (7.4-10.4); MONOCYTES % 1.2 % (2.0-8.0); NEUTROPHILS % 85.6 % (40.0-76.0); PLATELET 197 x1000/uL (130-400); RED BLOOD CELL COUNT 3.15 mill/uL (4.7-6.1); RED CELL DISTRIBUTION WIDTH 14.8 % (11.6-14.6)
[2019-01-13 17:29] LABS: PHOSPHORUS 6.3 mg/dL (2.5-4.9)
[2019-01-13 17:32] LABS: CREATINE KINASE 162 IU/L (39-308)
[2019-01-13 20:00] VITALS: BP 136/46
[2019-01-13] MEDS: ENOXAPARIN 40MG/0.4ML SYR SUBCUT SCH (20:38)
[2019-01-14] VITALS: BP 121/55
[2019-01-14 04:00] VITALS: BP 130/57
[2019-01-14] MEDS: METHYLPREDNISOLONE SOD SUCC 125 MG/2 ML VIAL IV SCH ×3 (06:12→21:07)
[2019-01-14] MEDS: BLOOD SUGAR DIAGNOSTIC STRIP TEST SCH ×4 (06:20→20:33)
[2019-01-14] MEDS: INSULIN LISPRO 100 UNITS/ML SUBCUT SCH ×4 (07:50→21:08)
[2019-01-14] MEDS: AMLODIPINE 10MG TABLET PO SCH (09:00)
[2019-01-14] MEDS: FUROSEMIDE 40MG/4ML VIAL IV SCH ×2 (09:00→18:10)
[2019-01-14 12:00] VITALS: BP 105/51
[2019-01-14] MEDS: NITROGLYCERIN OINT 1GM/INCH UDPKT TD SCH ×3 (13:00→18:11)
[2019-01-14] MEDS: ASPIRIN 81MG EC TABLET PO SCH (13:45)
[2019-01-14] MEDS: FOLIC ACID 1MG TABLET PO SCH (13:45)
[2019-01-14] MEDS: THIAMINE HCL 100MG TABLET PO SCH (13:45)
[2019-01-14 16:00] VITALS: BP 135/56
[2019-01-14] MEDS: ENOXAPARIN 30MG/0.3ML SYR SUBCUT SCH (18:10)
[2019-01-14 20:31] VITALS: BP 134/61
[2019-01-15] VITALS: BP 141/63
[2019-01-15 04:00] VITALS: BP 101/59
[2019-01-15] MEDS: METHYLPREDNISOLONE SOD SUCC 125 MG/2 ML VIAL IV SCH (06:19)
[2019-01-15] MEDS: BLOOD SUGAR DIAGNOSTIC STRIP TEST SCH ×4 (06:20→20:28)
[2019-01-15] MEDS: INSULIN LISPRO 100 UNITS/ML SUBCUT SCH ×6 (07:50→20:54)
[2019-01-15 08:00] VITALS: BP 151/60
[2019-01-15 09:35] LABS: CHLORIDE 107 mEq/L (98-107)
[2019-01-15 09:37] LABS: HEMATOCRIT. 27.3 % (42.0-52.0); HEMOGLOBIN. 9.2 g/dL (14.0-18.0); MEAN CORPUSCULAR HEMOGLOBIN 29.2 pg (28.0-32.0); MEAN CORPUSCULAR VOLUME 86.9 fL (80.0-94.0); MEAN PLATELET VOLUME 9.7 fl (7.4-10.4); PLATELET 191 x1000/uL (130-400); RED BLOOD CELL COUNT 3.14 mill/uL (4.7-6.1); RED CELL DISTRIBUTION WIDTH 14.8 % (11.6-14.6)
[2019-01-15] MEDS: THIAMINE HCL 100MG TABLET PO SCH (10:57)
[2019-01-15] MEDS: AMLODIPINE 10MG TABLET PO SCH (10:57)
[2019-01-15] MEDS: NITROGLYCERIN OINT 1GM/INCH UDPKT TD SCH ×3 (10:57→18:17)
[2019-01-15] MEDS: ASPIRIN 81MG EC TABLET PO SCH (10:57)
[2019-01-15] MEDS: FOLIC ACID 1MG TABLET PO SCH (10:57)
[2019-01-15] MEDS: FUROSEMIDE 40MG/4ML VIAL IV SCH (10:57)
[2019-01-15 12:00] VITALS: BP 144/59
[2019-01-15 14:04] LABS: PLATELET ESTIMATE NORMAL
[2019-01-15] MEDS ORDERED: INSULIN LISPRO 100 UNITS/ML SUBCUT NR ×2 (14:38→23:45)
[2019-01-15] MEDS: SODIUM CHLORIDE 0.9% 1,000 ML IV SCH (15:12)
[2019-01-15 16:00] VITALS: BP 141/62
[2019-01-15] MEDS: ENOXAPARIN 30MG/0.3ML SYR SUBCUT SCH (18:17)
[2019-01-15 20:00] VITALS: BP 135/62
[2019-01-15] MEDS: ATORVASTATIN CALCIUM 40MG TABLET PO SCH (20:54)
[2019-01-15] MEDS: AMLODIPINE 5MG TABLET PO SCH (20:54)
[2019-01-15] MEDS: CARVEDILOL 12.5MG TABLET PO SCH (20:54)
[2019-01-15] MEDS ORDERED: DEXTROSE 50% WATER 50ML SYRINGE IV PRN (23:45)
[2019-01-16 00:32] VITALS: BP 130/58
[2019-01-16] MEDS ORDERED: INSULIN REGULAR (HUMULIN R) 300UNITS/3ML SUBCUT NR (01:00)
[2019-01-16 04:44] VITALS: BP 124/52
[2019-01-16 06:11] LABS: HEMATOCRIT. 25.2 % (42.0-52.0); HEMOGLOBIN. 8.8 g/dL (14.0-18.0); MEAN CORPUSCULAR HEMOGLOBIN 29.9 pg (28.0-32.0); MEAN CORPUSCULAR VOLUME 85.8 fL (80.0-94.0); MEAN PLATELET VOLUME 10.4 fl (7.4-10.4); PLATELET 194 x1000/uL (130-400); RED BLOOD CELL COUNT 2.94 mill/uL (4.7-6.1)
[2019-01-16] MEDS: BLOOD SUGAR DIAGNOSTIC STRIP TEST SCH ×4 (06:21→21:34)
[2019-01-16] MEDS ORDERED: BLOOD SUGAR DIAGNOSTIC STRIP TEST SCH (07:20)
[2019-01-16 08:00] VITALS: BP 160/65
[2019-01-16 08:15] LABS: PHOSPHORUS 5.3 mg/dL (2.5-4.9)
[2019-01-16] MEDS: CARVEDILOL 12.5MG TABLET PO SCH ×2 (09:28→21:33)
[2019-01-16] MEDS: ASPIRIN 81MG EC TABLET PO SCH (09:29)
[2019-01-16] MEDS: NITROGLYCERIN OINT 1GM/INCH UDPKT TD SCH ×3 (09:29→17:25)
[2019-01-16] MEDS: FOLIC ACID 1MG TABLET PO SCH (09:29)
[2019-01-16] MEDS: AMLODIPINE 5MG TABLET PO SCH ×2 (09:29→21:34)
[2019-01-16] MEDS: THIAMINE HCL 100MG TABLET PO SCH (09:29)
[2019-01-16] MEDS: SODIUM CHLORIDE 0.9% 1,000 ML IV SCH ×2 (09:30→16:12)
[2019-01-16] MEDS: INSULIN LISPRO 100 UNITS/ML SUBCUT SCH ×4 (09:46→21:44)
[2019-01-16 12:00] VITALS: BP 128/56
[2019-01-16 16:00] VITALS: BP 134/60
[2019-01-16] MEDS: ENOXAPARIN 30MG/0.3ML SYR SUBCUT SCH (17:25)
[2019-01-16 18:28] LABS: PLATELET ESTIMATE NORMAL
[2019-01-16 20:20] VITALS: BP 141/61
[2019-01-16] MEDS: ATORVASTATIN CALCIUM 40MG TABLET PO SCH (21:33)
[2019-01-17 00:25] VITALS: BP 130/59
[2019-01-17 04:38] VITALS: BP 133/58
[2019-01-17 06:16] LABS: EOSINOPHILS % 0.5 % (0.0-5.0); HEMATOCRIT. 26.4 % (42.0-52.0); HEMOGLOBIN. 8.9 g/dL (14.0-18.0); LYMPHOCYTES % 11.4 % (20.0-50.0); MEAN CORPUSCULAR HEMOGLOBIN 29.3 pg (28.0-32.0); MEAN CORPUSCULAR VOLUME 86.8 fL (80.0-94.0); MEAN PLATELET VOLUME 10.1 fl (7.4-10.4); MONOCYTES % 10.1 % (2.0-8.0); PLATELET 182 x1000/uL (130-400); RED BLOOD CELL COUNT 3.05 mill/uL (4.7-6.1); RED CELL DISTRIBUTION WIDTH 15.1 % (11.6-14.6)
[2019-01-17] MEDS: BLOOD SUGAR DIAGNOSTIC STRIP TEST SCH ×4 (07:20→21:00)
[2019-01-17] MEDS: INSULIN LISPRO 100 UNITS/ML SUBCUT SCH ×4 (07:50→21:00)
[2019-01-17 08:00] VITALS: BP 140/60
[2019-01-17] MEDS ORDERED: SODIUM BICARBONATE 4% (2.4MEQ) 5ML VIAL IV ONE (08:11)
[2019-01-17] MEDS ORDERED: LIDOCAINE HCL 1% 20ML VIAL (Pyxis) INJ ONE (08:11)
[2019-01-17] MEDS: FOLIC ACID 1MG TABLET PO SCH (10:15)
[2019-01-17] MEDS: AMLODIPINE 5MG TABLET PO SCH ×2 (10:15→21:39)
[2019-01-17] MEDS: CARVEDILOL 12.5MG TABLET PO SCH ×2 (10:16→21:38)
[2019-01-17] MEDS: ASPIRIN 81MG EC TABLET PO SCH (10:16)
[2019-01-17] MEDS: NITROGLYCERIN OINT 1GM/INCH UDPKT TD SCH ×3 (10:16→17:58)
[2019-01-17] MEDS: THIAMINE HCL 100MG TABLET PO SCH (10:16)
[2019-01-17 12:00] VITALS: BP 136/58
[2019-01-17] MEDS: SODIUM CHLORIDE 0.9% 1,000 ML IV SCH (13:26)
[2019-01-17 16:00] VITALS: BP 136/62
[2019-01-17 17:19] LABS: HEPATITIS B SURFACE ANTIGEN NEGATIVE
[2019-01-17 17:48] LABS: HEPATITIS A AB IGM NEGATIVE (NEGATIVE)
[2019-01-17] MEDS: ENOXAPARIN 30MG/0.3ML SYR SUBCUT SCH (18:04)
[2019-01-17 20:29] VITALS: BP 148/69
[2019-01-17] MEDS: ATORVASTATIN CALCIUM 40MG TABLET PO SCH (21:38)
[2019-01-18] VITALS (34 sets, daily range): BP systolic 136–177; BP diastolic 57–97
[2019-01-18] MEDS: SODIUM CHLORIDE 0.9% 1,000 ML IV SCH (01:04)
[2019-01-18] MEDS: ONDANSETRON HCL 4MG/2ML INJ IV PRN ×3 (01:27→17:37)
[2019-01-18] MEDS: BLOOD SUGAR DIAGNOSTIC STRIP TEST SCH ×4 (06:27→20:48)
[2019-01-18 07:04] LABS: BASOPHILS % 0.1 % (0.0-2.0); EOSINOPHILS % 1.3 % (0.0-5.0); HEMATOCRIT. 26.5 % (42.0-52.0); HEMOGLOBIN. 9.2 g/dL (14.0-18.0); LYMPHOCYTES % 11.7 % (20.0-50.0); MEAN CORPUSCULAR HEMOGLOBIN 29.9 pg (28.0-32.0); MEAN CORPUSCULAR VOLUME 85.7 fL (80.0-94.0); MEAN PLATELET VOLUME 9.7 fl (7.4-10.4); MONOCYTES % 8.6 % (2.0-8.0); NEUTROPHILS % 78.3 % (40.0-76.0); PLATELET 185 x1000/uL (130-400); RED BLOOD CELL COUNT 3.09 mill/uL (4.7-6.1)
[2019-01-18] MEDS: INSULIN LISPRO 100 UNITS/ML SUBCUT SCH ×5 (07:50→20:48)
[2019-01-18] MEDS: NITROGLYCERIN OINT 1GM/INCH UDPKT TD SCH (09:00)
[2019-01-18] MEDS: AMLODIPINE 5MG TABLET PO SCH (09:00)
[2019-01-18] MEDS: ASPIRIN 81MG EC TABLET PO SCH (09:00)
[2019-01-18] MEDS: CARVEDILOL 12.5MG TABLET PO SCH (09:00)
[2019-01-18] MEDS: FOLIC ACID 1MG TABLET PO SCH (09:00)
[2019-01-18] MEDS: THIAMINE HCL 100MG TABLET PO SCH (09:00)
[2019-01-18] MEDS ORDERED: DOPAMINE 400MG/250ML PREMIX 250 ML IV PRN (15:45)
[2019-01-18] MEDS ORDERED: DOPAMINE 400MG/250ML PREMIX 250 ML IV SCH (16:00)
[2019-01-18] MEDS: ENOXAPARIN 30MG/0.3ML SYR SUBCUT SCH (17:27)
[2019-01-18] MEDS: ATORVASTATIN CALCIUM 40MG TABLET PO SCH (20:48)
[2019-01-18] MEDS ORDERED: MORPHINE SULFATE 2 MG/ML CPJ (NOT FOR IM USE) IV PRN (21:30)
[2019-01-19] VITALS (78 sets, daily range): BP systolic 136–181; BP diastolic 57–95
[2019-01-19 05:46] LABS: BASOPHILS % 0.1 % (0.0-2.0); EOSINOPHILS % 1.4 % (0.0-5.0); HEMOGLOBIN. 10.9 g/dL (14.0-18.0); LYMPHOCYTES % 12.2 % (20.0-50.0); MEAN CORPUSCULAR HEMOGLOBIN 29.2 pg (28.0-32.0); MEAN CORPUSCULAR VOLUME 85.8 fL (80.0-94.0); MEAN PLATELET VOLUME 9.2 fl (7.4-10.4); MONOCYTES % 8.3 % (2.0-8.0); PLATELET 205 x1000/uL (130-400); RED BLOOD CELL COUNT 3.73 mill/uL (4.7-6.1); RED CELL DISTRIBUTION WIDTH 14.7 % (11.6-14.6)
[2019-01-19] MEDS: BLOOD SUGAR DIAGNOSTIC STRIP TEST SCH ×4 (07:50→21:37)
[2019-01-19 08:23] LABS: HIV SCREEN 4G Non Reactive (Non Reactive)
[2019-01-19] MEDS: THIAMINE HCL 100MG TABLET PO SCH (08:23)
[2019-01-19] MEDS: FOLIC ACID 1MG TABLET PO SCH (08:24)
[2019-01-19] MEDS: INSULIN LISPRO 100 UNITS/ML SUBCUT SCH ×4 (08:26→21:42)
[2019-01-19] MEDS ORDERED: ATROPINE SULFATE 1MG/ML VIAL IV PRN (10:30)
[2019-01-19] MEDS: AMLODIPINE 10MG TABLET PO SCH (10:50)
[2019-01-19] MEDS: LOSARTAN POTASSIUM 25 MG TABLET PO SCH (10:50)
[2019-01-19] MEDS: HYDRALAZINE HCL 25MG TABLET PO SCH ×2 (12:36→21:42)
[2019-01-19] MEDS: ENOXAPARIN 30MG/0.3ML SYR SUBCUT SCH (17:59)
[2019-01-19] MEDS: ATORVASTATIN CALCIUM 40MG TABLET PO SCH (21:41)
[2019-01-20] VITALS (24 sets, daily range): BP systolic 118–173; BP diastolic 47–81
[2019-01-20] MEDS: HYDRALAZINE HCL 25MG TABLET PO SCH ×3 (05:37→20:53)
[2019-01-20 05:46] LABS: BASOPHILS % 0.2 % (0.0-2.0); EOSINOPHILS % 4.9 % (0.0-5.0); HEMATOCRIT. 29.9 % (42.0-52.0); HEMOGLOBIN. 10.1 g/dL (14.0-18.0); LYMPHOCYTES % 11.6 % (20.0-50.0); MEAN CORPUSCULAR HEMOGLOBIN 29.2 pg (28.0-32.0); MEAN CORPUSCULAR VOLUME 85.9 fL (80.0-94.0); MEAN PLATELET VOLUME 9.4 fl (7.4-10.4); MONOCYTES % 7.4 % (2.0-8.0); NEUTROPHILS % 75.9 % (40.0-76.0); PLATELET 199 x1000/uL (130-400); RED BLOOD CELL COUNT 3.48 mill/uL (4.7-6.1); RED CELL DISTRIBUTION WIDTH 14.6 % (11.6-14.6)
[2019-01-20] MEDS: BLOOD SUGAR DIAGNOSTIC STRIP TEST SCH ×4 (07:50→20:54)
[2019-01-20] MEDS: THIAMINE HCL 100MG TABLET PO SCH (09:12)
[2019-01-20] MEDS: FOLIC ACID 1MG TABLET PO SCH (09:12)
[2019-01-20] MEDS: AMLODIPINE 10MG TABLET PO SCH (09:12)
[2019-01-20] MEDS: LOSARTAN POTASSIUM 25 MG TABLET PO SCH (09:12)
[2019-01-20] MEDS: INSULIN LISPRO 100 UNITS/ML SUBCUT SCH ×4 (09:14→20:54)
[2019-01-20] MEDS: ENOXAPARIN 30MG/0.3ML SYR SUBCUT SCH (17:40)
[2019-01-20] MEDS: ATORVASTATIN CALCIUM 40MG TABLET PO SCH (20:53)
[2019-01-21] VITALS (24 sets, daily range): BP systolic 117–157; BP diastolic 49–70
[2019-01-21 04:53] LABS: BASOPHILS % 0.4 % (0.0-2.0); LYMPHOCYTES % 17.6 % (20.0-50.0); MEAN CORPUSCULAR HEMOGLOBIN 29.6 pg (28.0-32.0); MEAN CORPUSCULAR VOLUME 86.3 fL (80.0-94.0); MEAN PLATELET VOLUME 9.6 fl (7.4-10.4); PLATELET 210 x1000/uL (130-400); RED BLOOD CELL COUNT 3.36 mill/uL (4.7-6.1); RED CELL DISTRIBUTION WIDTH 14.8 % (11.6-14.6)
[2019-01-21] MEDS: HYDRALAZINE HCL 25MG TABLET PO SCH ×3 (05:44→21:07)
[2019-01-21] MEDS: BLOOD SUGAR DIAGNOSTIC STRIP TEST SCH ×4 (07:50→21:07)
[2019-01-21] MEDS: FOLIC ACID 1MG TABLET PO SCH (08:58)
[2019-01-21] MEDS: THIAMINE HCL 100MG TABLET PO SCH (08:58)
[2019-01-21] MEDS: LOSARTAN POTASSIUM 25 MG TABLET PO SCH (08:58)
[2019-01-21] MEDS: AMLODIPINE 10MG TABLET PO SCH (08:58)
[2019-01-21] MEDS: INSULIN LISPRO 100 UNITS/ML SUBCUT SCH ×4 (08:59→21:11)
[2019-01-21] MEDS: ENOXAPARIN 30MG/0.3ML SYR SUBCUT SCH (18:47)
[2019-01-21] MEDS: ATORVASTATIN CALCIUM 40MG TABLET PO SCH (21:07)
[2019-01-22] VITALS (24 sets, daily range): BP systolic 125–162; BP diastolic 51–95
[2019-01-22] MEDS: HYDRALAZINE HCL 25MG TABLET PO SCH ×3 (05:48→20:54)
[2019-01-22 05:57] LABS: BASOPHILS % 0.4 % (0.0-2.0); EOSINOPHILS % 6.9 % (0.0-5.0); HEMATOCRIT. 26.4 % (42.0-52.0); HEMOGLOBIN. 9.2 g/dL (14.0-18.0); LYMPHOCYTES % 18.2 % (20.0-50.0); MEAN CORPUSCULAR HEMOGLOBIN 30.1 pg (28.0-32.0); MEAN CORPUSCULAR VOLUME 86.5 fL (80.0-94.0); MEAN PLATELET VOLUME 9.1 fl (7.4-10.4); MONOCYTES % 10.1 % (2.0-8.0); NEUTROPHILS % 64.4 % (40.0-76.0); PLATELET 210 x1000/uL (130-400); RED BLOOD CELL COUNT 3.05 mill/uL (4.7-6.1); RED CELL DISTRIBUTION WIDTH 14.9 % (11.6-14.6)
[2019-01-22] MEDS: BLOOD SUGAR DIAGNOSTIC STRIP TEST SCH ×4 (07:55→20:54)
[2019-01-22] MEDS: FOLIC ACID 1MG TABLET PO SCH (08:05)
[2019-01-22] MEDS: LOSARTAN POTASSIUM 25 MG TABLET PO SCH (08:05)
[2019-01-22] MEDS: AMLODIPINE 10MG TABLET PO SCH (08:05)
[2019-01-22] MEDS: THIAMINE HCL 100MG TABLET PO SCH (08:05)
[2019-01-22] MEDS: INSULIN LISPRO 100 UNITS/ML SUBCUT SCH ×4 (08:06→20:58)
[2019-01-22] MEDS: ENOXAPARIN 30MG/0.3ML SYR SUBCUT SCH (17:54)
[2019-01-22] MEDS: ATORVASTATIN CALCIUM 40MG TABLET PO SCH (20:53)
[2019-01-23] VITALS (12 sets, daily range): BP systolic 124–142; BP diastolic 55–88
[2019-01-23] MEDS: ONDANSETRON HCL 4MG/2ML INJ IV PRN (00:13)
[2019-01-23] MEDS: BLOOD SUGAR DIAGNOSTIC STRIP TEST SCH ×2 (06:37→11:46)
[2019-01-23] MEDS: HYDRALAZINE HCL 25MG TABLET PO SCH ×2 (06:40→13:50)
[2019-01-23] MEDS: AMLODIPINE 10MG TABLET PO SCH (08:45)
[2019-01-23] MEDS: INSULIN LISPRO 100 UNITS/ML SUBCUT SCH ×2 (08:45→12:14)
[2019-01-23] MEDS: FOLIC ACID 1MG TABLET PO SCH (08:45)
[2019-01-23] MEDS: LOSARTAN POTASSIUM 25 MG TABLET PO SCH (08:45)
[2019-01-23] MEDS: THIAMINE HCL 100MG TABLET PO SCH (08:45)
== END 2019-01-23 10:56 | disposition home or self-care (01) | DRG 682 ==
LOC: ER 10:11 → 6WST 12:07 → EDBEDREQ 12:14 → ENRESERV 12:58 → 3WST 01-18 10:57 → CVICU 01-18 16:00 → 3WST 01-23 01:57
PROVIDERS: ADMIT Internal Medicine Nephrology; ATTEND Internal Medicine Nephrology
PROC: 5A1D70Z Performance of Urinary Filtration, Intermittent, Less than 6 Hours Per Day (ICD-10-PCS; principal; 2019-01-16)
PROC: 02HV33Z Insertion of Infusion Device into Superior Vena Cava, Percutaneous Approach (ICD-10-PCS; 2019-01-17)
PROC: B5181ZA Fluoroscopy of Superior Vena Cava using Low Osmolar Contrast, Guidance (ICD-10-PCS; 2019-01-17)
PROC: B548ZZA Ultrasonography of Superior Vena Cava, Guidance (ICD-10-PCS; 2019-01-17)
PROC: 5A1D70Z Performance of Urinary Filtration, Intermittent, Less than 6 Hours Per Day (ICD-10-PCS; 2019-01-18)
DX: N17.9 Acute kidney failure, unspecified (principal); I46.9 Cardiac arrest, cause unspecified; I50.43 Acute on chronic combined systolic (congestive) and diastolic (congestive) heart failure; I13.0 Hypertensive heart and chronic kidney disease with heart failure and stage 1 through stage 4 chronic kidney disease, or unspecified chronic kidney disease; E87.2 Acidosis; E46 Unspecified protein-calorie malnutrition; I44.2 Atrioventricular block, complete; I24.9 Acute ischemic heart disease, unspecified; N18.9 Chronic kidney disease, unspecified; R07.89 Other chest pain; I25.5 Ischemic cardiomyopathy; I50.9 Heart failure, unspecified; E11.22 Type 2 diabetes mellitus with diabetic chronic kidney disease; D63.8 Anemia in other chronic diseases classified elsewhere; E78.00 Pure hypercholesterolemia, unspecified; E78.5 Hyperlipidemia, unspecified; I25.10 Atherosclerotic heart disease of native coronary artery without angina pectoris; Z95.1 Presence of aortocoronary bypass graft; E83.39 Other disorders of phosphorus metabolism; R00.1 Bradycardia, unspecified; Z68.28 Body mass index [BMI] 28.0-28.9, adult; Z79.84 Long term (current) use of oral hypoglycemic drugs
CPT/HCPCS: 36415; 36556; 71045; 71250; 76705; 77001; 80048; 82550; 82553; 82962; 83735; 83880; 84100; 84443; 84484; 86705; 86706; 86709; 86803; 87340; 87389; 93005; 96374; 97116; 97162; 97530; 99285; C1725; J1265; J1642; J1650; J1815; J1940; J2270; J2405; J2930; J3490; J7030; J7050

== ENCOUNTER → 2019-01-31 | Day surgery (SDC) | payer MEDICARE, MEDICAID ==
[2019-01-31] VITALS (9 sets, daily range): BP systolic 108–127; BP diastolic 55–59
[~2019-01-31] VITALS: Ht 180.3 cm; Wt 91.0 kg
[~2019-01-31] MED LIST changes: +CEFAZOLIN 1000MG PREMIX 50 ML IV ONE; -INSHUMSS SUBCUT; +LIDOCAINE HCL 1% 20ML VIAL (Pyxis) INJ ONE; +SODIUM BICARBONATE 4% (2.4MEQ) 5ML VIAL IV ONE
== END | disposition home or self-care (01) ==
LOC: ANGIO 12:02
PROVIDERS: ATTEND Internal Medicine Nephrology
DX: I13.2 Hypertensive heart and chronic kidney disease with heart failure and with stage 5 chronic kidney disease, or end stage renal disease (principal); E11.22 Type 2 diabetes mellitus with diabetic chronic kidney disease; N18.6 End stage renal disease; I50.40 Unspecified combined systolic (congestive) and diastolic (congestive) heart failure; I25.10 Atherosclerotic heart disease of native coronary artery without angina pectoris; Z95.5 Presence of coronary angioplasty implant and graft
CPT/HCPCS: 36558; 76937; 77001; C1750; C1769; J0690; J1642; J3490; J7050

== ENCOUNTER → 2019-03-14 | Day surgery (SDC) | payer MEDICARE, MEDICAID ==
[~2019-03-14] MED LIST changes: -CEFAZOLIN 1000MG PREMIX 50 ML IV ONE; -LIDOCAINE HCL 1% 20ML VIAL (Pyxis) INJ ONE; -SODIUM BICARBONATE 4% (2.4MEQ) 5ML VIAL IV ONE
[2019-03-14 13:38] LABS: BASOPHILS % 2.4 % (0.0-2.0); EOSINOPHILS % 4.3 % (0.0-5.0); HEMATOCRIT. 37.1 % (42.0-52.0); HEMOGLOBIN. 12.3 g/dL (14.0-18.0); LYMPHOCYTES % 35.9 % (20.0-50.0); MEAN CORPUSCULAR HEMOGLOBIN 29.8 pg (28.0-32.0); MEAN CORPUSCULAR VOLUME 89.7 fL (80.0-94.0); MONOCYTES % 6.1 % (2.0-8.0); NEUTROPHILS % 51.3 % (40.0-76.0); PLATELET 162 x1000/uL (130-400); RED BLOOD CELL COUNT 4.13 mill/uL (4.7-6.1); RED CELL DISTRIBUTION WIDTH 15.9 % (11.6-14.6)
[2019-03-14 13:45] LABS: INR 1.1; PARTIAL THROMBOPLASTIN TIME 29.3 sec (23.4-31.0); PROTHROMBIN TIME 11.3 sec (9.6-11.0)
== END | disposition home or self-care (01) ==
LOC: ANGIO 12:42
PROVIDERS: ATTEND Internal Medicine Nephrology
DX: I12.0 Hypertensive chronic kidney disease with stage 5 chronic kidney disease or end stage renal disease (principal); N18.6 End stage renal disease; N39.0 Urinary tract infection, site not specified; R73.09 Other abnormal glucose; E55.9 Vitamin D deficiency, unspecified; Z79.82 Long term (current) use of aspirin; Z79.899 Other long term (current) drug therapy; Z83.3 Family history of diabetes mellitus
CPT/HCPCS: 36415; 36589; 84132

== ENCOUNTER 2019-07-03 09:20 | Inpatient (IN) | payer MEDICARE, MEDICAID ==
[~2019-07-03] VITALS: Ht 170.2 cm; Wt 82.6 kg
[2019-07-03 10:12] LABS: BASOPHILS % 1.1 % (0.0-2.0); EOSINOPHILS % 3.7 % (0.0-5.0); HEMATOCRIT. 27.8 % (42.0-52.0); HEMOGLOBIN. 9.3 g/dL (14.0-18.0); LYMPHOCYTES % 20.6 % (20.0-50.0); MEAN CORPUSCULAR HEMOGLOBIN 29.7 pg (28.0-32.0); MEAN CORPUSCULAR VOLUME 88.5 fL (80.0-94.0); MEAN PLATELET VOLUME 8.9 fl (7.4-10.4); MONOCYTES % 7.8 % (2.0-8.0); NEUTROPHILS % 66.8 % (40.0-76.0); PLATELET 218 x1000/uL (130-400); RED BLOOD CELL COUNT 3.14 mill/uL (4.7-6.1); RED CELL DISTRIBUTION WIDTH 16.4 % (11.6-14.6)
[2019-07-03 10:16] LABS: CLARITY URINE CLEAR (CLEAR); COLOR URINE YELLOW (YELLOW); KETONES URINE NEGATIVE (NEGATIVE); LEUKOCYTE ESTERASE URINE NEGATIVE (NEGATIVE); NITRITE URINE NEGATIVE (NEGATIVE); OCCULT BLOOD URINE NEGATIVE (NEGATIVE); PROTEIN URINE 3+ (NEGATIVE); PROTHROMBIN TIME 10.3 sec (9.6-11.0); SPECIFIC GRAVITY URINE 1.014 (1.005-1.030); UROBILINOGEN URINE 0.2 E.U./dL (0.2-1.0)
[2019-07-03 10:18] LABS: CHLORIDE 109 mEq/L (98-107)
[2019-07-03 15:30] VITALS: BP 134/54
[2019-07-03] MEDS ORDERED: INFLUENZA VIRUS VACCINE(AFLURIA) 0.5ML SYR IM ONE (17:45)
[2019-07-03 20:00] VITALS: BP 132/53
[2019-07-03] MEDS: ATORVASTATIN CALCIUM 40MG TABLET PO SCH (20:52)
[2019-07-03] MEDS: CARVEDILOL 12.5MG TABLET PO SCH (20:53)
[2019-07-03] MEDS ORDERED: LORAZEPAM 2MG/ML CPJ IV PRN (22:00)
[2019-07-03] MEDS ORDERED: ACETAMINOPHEN 325MG TABLET PO PRN (22:00)
[2019-07-03] MEDS ORDERED: ONDANSETRON HCL 4MG/2ML INJ IV PRN (22:00)
[2019-07-03] MEDS ORDERED: IPRATROPIUM/ALBUTEROL 0.5-3(2.5)MG/3ML NEB NEB PRN (22:00)
[2019-07-03] MEDS ORDERED: CLONIDINE 0.1MG TABLET PO PRN (22:00)
[2019-07-03] MEDS ORDERED: HYDROCODONE/ACETAMINOPHEN 5/325MG TABLET PO PRN (22:00)
[2019-07-03] MEDS ORDERED: MORPHINE SULFATE 2 MG/ML CPJ (NOT FOR IM USE) IV PRN (22:13)
[2019-07-03] MEDS: LISINOPRIL 5MG TABLET PO SCH (23:19)
[2019-07-03] MEDS: ENOXAPARIN 30MG/0.3ML SYR SUBCUT SCH (23:20)
[2019-07-03] MEDS: SODIUM CHLORIDE 0.9% 1,000 ML IV SCH (23:21)
[2019-07-04] VITALS: BP 112/39
[2019-07-04 00:54] LABS: CREATINE KINASE 54 IU/L (39-308)
[2019-07-04 01:30] LABS: CREATINE KINASE MB FRACTION 1.4 ng/mL (0.5-3.6)
[2019-07-04] MEDS ORDERED: DEXTROSE 50% WATER 50ML SYRINGE IV PRN (02:45)
[2019-07-04 04:00] VITALS: BP 99/47
[2019-07-04 06:51] LABS: CHLORIDE 111 mEq/L (98-107)
[2019-07-04 07:00] LABS: CREATINE KINASE 54 IU/L (39-308)
[2019-07-04 07:02] LABS: CREATINE KINASE MB FRACTION 1.3 ng/mL (0.5-3.6)
[2019-07-04 07:18] LABS: BASOPHILS % 1.7 % (0.0-2.0); EOSINOPHILS % 6.8 % (0.0-5.0); HEMATOCRIT. 24.1 % (42.0-52.0); HEMOGLOBIN. 8.1 g/dL (14.0-18.0); LYMPHOCYTES % 21.4 % (20.0-50.0); MEAN CORPUSCULAR HEMOGLOBIN 29.9 pg (28.0-32.0); MEAN CORPUSCULAR VOLUME 88.5 fL (80.0-94.0); MEAN PLATELET VOLUME 9.4 fl (7.4-10.4); MONOCYTES % 10.2 % (2.0-8.0); NEUTROPHILS % 59.9 % (40.0-76.0); PLATELET 188 x1000/uL (130-400); RED BLOOD CELL COUNT 2.72 mill/uL (4.7-6.1); RED CELL DISTRIBUTION WIDTH 16.3 % (11.6-14.6)
[2019-07-04 08:00] VITALS: BP 125/53
[2019-07-04] MEDS: BLOOD SUGAR DIAGNOSTIC STRIP TEST SCH ×4 (08:00→20:49)
[2019-07-04] MEDS: INSULIN LISPRO 100 UNITS/ML SUBCUT SCH ×4 (08:10→20:52)
[2019-07-04] MEDS: CARVEDILOL 12.5MG TABLET PO SCH ×2 (09:04→18:10)
[2019-07-04] MEDS: CLOPIDOGREL 75MG TABLET PO SCH (09:04)
[2019-07-04] MEDS: ASPIRIN 81MG EC TABLET PO SCH (09:04)
[2019-07-04] MEDS: AMLODIPINE 10MG TABLET PO SCH (09:05)
[2019-07-04] MEDS: LISINOPRIL 5MG TABLET PO SCH (11:00)
[2019-07-04 12:00] VITALS: BP 116/62
[2019-07-04 16:00] VITALS: BP 124/49
[2019-07-04] MEDS: SODIUM CHLORIDE 0.9% 1,000 ML IV SCH (16:04)
[2019-07-04 20:00] VITALS: BP 113/49
[2019-07-04] MEDS: ATORVASTATIN CALCIUM 40MG TABLET PO SCH (20:48)
[2019-07-04] MEDS: ENOXAPARIN 30MG/0.3ML SYR SUBCUT SCH (20:49)
[2019-07-05] VITALS (15 sets, daily range): BP systolic 114–139; BP diastolic 40–69
[2019-07-05] MEDS: BLOOD SUGAR DIAGNOSTIC STRIP TEST SCH ×2 (07:29→12:40)
[2019-07-05] MEDS: SODIUM CHLORIDE 0.9% 1,000 ML IV SCH (07:43)
[2019-07-05] MEDS: INSULIN LISPRO 100 UNITS/ML SUBCUT SCH ×2 (08:10→13:10)
[2019-07-05] MEDS: CLOPIDOGREL 75MG TABLET PO SCH (09:29)
[2019-07-05] MEDS: ASPIRIN 81MG EC TABLET PO SCH (09:29)
[2019-07-05] MEDS: LISINOPRIL 5MG TABLET PO SCH (09:30)
[2019-07-05] MEDS: AMLODIPINE 10MG TABLET PO SCH (09:30)
[2019-07-05] MEDS: CARVEDILOL 12.5MG TABLET PO SCH (09:31)
[2019-07-05] MEDS ORDERED: FUROSEMIDE 40MG/4ML VIAL IVP NR (13:30)
[2019-07-05] MEDS ORDERED: FENTANYL CITRATE/PF 50MCG/ML 2ML VIAL ONE (13:41)
[2019-07-05] MEDS ORDERED: HEPARIN 1000 UNITS/ML 10ML ONE (13:44)
[2019-07-05] MEDS ORDERED: SODIUM BICARBONATE 4% (2.4MEQ) 5ML VIAL IV ONE (13:44)
[2019-07-05] MEDS ORDERED: LIDOCAINE HCL 1% 20ML VIAL (Pyxis) INJ ONE (13:45)
[2019-07-05] MEDS ORDERED: CEFAZOLIN 1000MG PREMIX 50 ML IV NR (14:00)
[2019-07-05] MEDS ORDERED: LIDOCAINE HCL/EPINEPHRINE 1%-EPI 1:100,000 20 ML VIAL ONE (14:02)
[2019-07-05] MEDS ORDERED: FENTANYL CITRATE/PF 50MCG/ML 2ML VIAL IV ONE (14:30)
[2019-07-05 14:38] LABS: HEPATITIS B SURFACE ANTIGEN NEGATIVE
[2019-07-05] MEDS ORDERED: FENTANYL CITRATE/PF 50MCG/ML 2ML VIAL IV NR (14:45)
[2019-07-05 15:07] LABS: HEPATITIS A AB IGM NEGATIVE (NEGATIVE)
== END 2019-07-05 18:40 | disposition home or self-care (01) | DRG 673 ==
LOC: ER 09:20 → 7WST 12:03 → EDBEDREQ 12:07 → EDBEDREQTM 12:07 → ENRESERV 14:25
PROVIDERS: ADMIT Internal Medicine Nephrology; ATTEND Internal Medicine Nephrology
PROC: 0JH63XZ Insertion of Tunneled Vascular Access Device into Chest Subcutaneous Tissue and Fascia, Percutaneous Approach (ICD-10-PCS; principal; 2019-07-05)
PROC: 02HV33Z Insertion of Infusion Device into Superior Vena Cava, Percutaneous Approach (ICD-10-PCS; 2019-07-05)
PROC: B548ZZA Ultrasonography of Superior Vena Cava, Guidance (ICD-10-PCS; 2019-07-05)
PROC: B5181ZA Fluoroscopy of Superior Vena Cava using Low Osmolar Contrast, Guidance (ICD-10-PCS; 2019-07-05)
DX: N17.9 Acute kidney failure, unspecified (principal); I50.33 Acute on chronic diastolic (congestive) heart failure; I13.0 Hypertensive heart and chronic kidney disease with heart failure and stage 1 through stage 4 chronic kidney disease, or unspecified chronic kidney disease; I24.9 Acute ischemic heart disease, unspecified; E44.1 Mild protein-calorie malnutrition; E11.22 Type 2 diabetes mellitus with diabetic chronic kidney disease; E78.5 Hyperlipidemia, unspecified; E87.5 Hyperkalemia; I25.5 Ischemic cardiomyopathy; N18.9 Chronic kidney disease, unspecified; E78.00 Pure hypercholesterolemia, unspecified; I25.10 Atherosclerotic heart disease of native coronary artery without angina pectoris; D63.8 Anemia in other chronic diseases classified elsewhere; Z79.899 Other long term (current) drug therapy; Z95.1 Presence of aortocoronary bypass graft; Z79.82 Long term (current) use of aspirin; Z82.49 Family history of ischemic heart disease and other diseases of the circulatory system; Z83.3 Family history of diabetes mellitus; Z68.28 Body mass index [BMI] 28.0-28.9, adult
CPT/HCPCS: 36415; 71045; 76770; 76937; 77001; 80048; 81003; 82550; 82553; 82962; 83735; 83880; 84484; 86705; 86706; 86709; 86803; 87340; 90686; 93005; 93306; 99152; 99153; 99285; C1750; C1769; C1887; J0690; J1644; J1650; J1815; J3010; J3490; J7030; G0500